=== PATIENT | male | born 1960 | race Caucasian/White ===

== ENCOUNTER 2016-11-17 11:55 | Emergency (ER) | payer OTHER, BC ==
[~2016-11-17] VITALS: Ht 180.3 cm; Wt 77.3 kg
[2016-11-17] MEDS ORDERED: METF500T13 PO (12:03)
[2016-11-17] MEDS ORDERED: ACTO30TA15 PO (12:03)
[2016-11-17] MEDS ORDERED: FLUORESCEIN OPHTH 1 MG STRIP As Ordered ONE (14:33)
[2016-11-17] MEDS ORDERED: FLUORESCEIN OPHTH 1 MG STRIP OD ONE (14:45)
[2016-11-17] MEDS ORDERED: TETRACAINE 0.5% OPHTH SOLN 4ML OD ONE (14:45)
[2016-11-17] MEDS ORDERED: CIPROFLOXACIN 0.3% OPHTH SOLN 2.5ML OD ONE (14:45)
[2016-11-17] MEDS ORDERED: CIPR0.3S OD (14:47)
[2016-11-17 14:52] VITALS: BP 144/81
== END 2016-11-17 15:10 | disposition home or self-care (01) ==
LOC: M ED 11:55
DX: S05.01XA Injury of conjunctiva and corneal abrasion without foreign body, right eye, initial encounter (principal); Z72.0 Tobacco use; X58.XXXA Exposure to other specified factors, initial encounter; Y92.89 Other specified places as the place of occurrence of the external cause; Y93.89 Activity, other specified; Y99.0 Civilian activity done for income or pay

== ENCOUNTER → 2024-11-05 | Outpatient (RCR) ==
[~2024-11-05] MED LIST: ACTO30TA15 PO; CIPR0.3S37 OD; METF500T13 PO
== END ==
LOC: M EMPSKH 10-18 07:58
PROVIDERS: ATTEND Family Medicine
DX: Z20.828 Contact with and (suspected) exposure to other viral communicable diseases (principal)